=== PATIENT | female | born 1950 | race Caucasian/White ===

== ENCOUNTER 2017-05-04 11:27 | Day surgery (SDC) | payer MEDICARE ==
[2017-05-04] MEDS ORDERED: LIDOCAINE 2% MDV (20MG/ML) 20ML VIAL IV ONE (11:28)
[2017-05-04] MEDS ORDERED: PROPOFOL 10 MG/ML VIAL IV ONE (11:28)
--- NOTE | 2017-05-04 15:10 | Operative Note ---
DATE OF SURGERY: 05/04/2017 OPERATION: COLONOSCOPY to the cecum. INDICATION: Colorectal cancer screening. This is the patient's first colonoscopy. ANESTHESIA: Intravenous sedation was administered by the department of anesthesiology and included Diprivan titrated to effect. PROCEDURE: Following informed consent from this alert individual including a discussion of the risks and benefits of the procedure and an opportunity for the patient to ask questions, the patient was in the left lateral decubitus position. A digital rectal examination was performed. No abnormalities were detected. Following this, the Olympus [id number] video colonoscope was inserted into the rectum without resistance. The rectal mucosa had a normal appearance with normal folds and distensibility. The colonoscope was advanced up through the bowel to the level of the cecum without much difficulty, although there was a fair amount of retained liquid and some semi-solid stool noted. The majority of the liquid stool was suctioned and washed with fair visualization. The cecum itself was defined by noting the appendiceal orifice and cecal pouch. From the base of the cecum, the colonoscope was then withdrawn slowly back through the bowel, reexamining the mucosa upon withdrawal. Washing and suctioning upon withdrawal as well. As visualized, no mucosal changes were appreciated except for diverticulosis in the sigmoid colon. Retroflexion in the rectum failed to demonstrate any large abnormalities, although the preparation was compromised by some retained liquid and semi-solid stool in the distal rectum. The endoscope was then withdrawn after retroflexion was accomplished. The patient tolerated the procedure well and was returned to the recovery area in stable condition. IMPRESSION: 1. Diverticulosis. 2. Otherwise unremarkable colonoscopy to the cecum as visualized. 3. Colon preparation was fair. RECOMMENDATIONS: Because of the preparation, I did recommend that the patient have recheck colonoscopy in 3 years' time or sooner if problems arise. She will otherwise be following up with Dr. Leiva. As always, thank you for allowing me to participate in the care of your patient. CC: Jesus MCMULLEN
== END 2017-05-04 12:35 | disposition home or self-care (01) ==
LOC: HOP 11:27
PROVIDERS: ATTEND Internal Medicine Gastroenterology
DX: Z12.11 Encounter for screening for malignant neoplasm of colon (principal); K57.30 Diverticulosis of large intestine without perforation or abscess without bleeding
CPT/HCPCS: 00810; G0121

== ENCOUNTER 2018-11-10 10:51 | Emergency (ER) | payer MEDICARE, OTHER ==
--- NOTE | 2018-11-10 12:05 | Emergency Department Record ---
History of Present Illness - General Chief Complaint: Hypertension Stated Complaint: HIGH BLOOD PRESSURE Time Seen by Provider: 11/10/18 11:59 Source: Patient, RN notes reviewed Mode of Arrival: Ambulatory - History of Present Illness Initial Comments: high BP at home and she came in for evaluation and no chest pain she feels tired and no headache and EKG is nsr no acute changes. Onset/Timin -: Week(s) History of Same: No History of Trauma: No Improves With: Nothing Worsens With: Nothing Associated Symptoms: Other - Trang Coma Scale Eye Response: (4) Open spontaneously Motor Response: (6) Obeys commands - Related Data Previous Rx's Medication Instructions Recorded Amlodipine Besylate [Norvasc] 5 mg PO DAILY #30 tab 11/10/18 Allergies Allergy/AdvReac Type Severity Reaction Status Date / Time ciprofloxacin [From Cipro] Allergy RASH Verified 11/10/18 11:14 Latex, Natural Rubber Allergy RASH Verified 11/10/18 11:14 Travel Screening - Travel/Exposure Within Last 30 Days Have you traveled within the last 30 days?: No - Travel/Exposure Within Last Year Have you traveled outside the [place] in the last year?: No - Additonal Travel Details Have you been exposed to anyone with a communicable illness?: No - Travel Symptoms Symptom Screening: None Review of Systems Reviewed: No additional complaints except as noted below Constitutional: Reports: As per HPI. Denies: Chills, Fever, Malaise, Night sweats, Weakness, Weight change Eyes: Reports: As per HPI. Denies: Eye discharge, Eye pain, Photophobia, Vision change ENT: Reports: As per HPI. Denies: Congestion, Dental pain, Ear pain, Epistaxis, Hearing loss, Throat pain Respiratory: Reports: As per HPI. Denies: Cough, Dyspnea, Hemoptysis, Stridor, Wheezes Cardiovascular: Reports: As per HPI. Denies: Arrhythmia, Chest pain, Dyspnea on exertion, Edema, Murmurs, Orthopnea, Palpitations, Paroxysmal nocturnal dyspnea, Rheumatic Fever, Syncope Endocrine: Reports: As per HPI. Denies: Fatigue, Heat or cold intolerance, Polydipsia, Polyuria Gastrointestinal: Reports: As per HPI. Denies: Abdominal pain, Constipation, Diarrhea, Hematemesis, Hematochezia, Melena, Nausea, Vomiting Genitourinary: Reports: As per HPI. Denies: Abnormal menses, Discharge, Dyspare unia, Dysuria, Frequency, Hematuria, Incontinence, Retention, Urgency Musculoskeletal: Reports: As per HPI. Denies: Arthralgia, Back pain, Gout, Joint swelling, Myalgia, Neck pain Skin: Reports: As per HPI. Denies: Bruising, Change in color, Change in hair/nails, Lesions, Pruritus, Rash Neurological: Reports: As per HPI. Denies: Abnormal gait, Confusion, Headache, Numbness, Paresthesias, Seizure, Tingling, Tremors, Vertigo, Weakness Psychiatric: Reports: As per HPI. Denies: Anxiety, Auditory hallucinations, Depression, Homicidal thoughts, Suicidal thoughts, Visual hallucinations Hematological/Lymphatic: Reports: As per HPI. Denies: Anemia, Blood Clots, Easy bleeding, Easy bruising, Swollen glands Past Medical History - SOCIAL HISTORY Smoking Status: Never smoker Alcohol Use: None Drug Use: None - RESPIRATORY Hx Respiratory Disorders: Yes Hx Pneumonia: Yes - CARDIOVASCULAR Hx Cardio Disorders: No - NEURO Hx Neuro Disorders: Yes - GI Hx GI Disorders: No - Hx Genitourinary Disorders: Yes Hx UTI: Yes - ENDOCRINE Hx Endocrine Disorders: No - MUSCULOSKELETAL Hx Musculoskeletal Disorders: No - PSYCH Hx Psych Problems: No - HEMATOLOGY/ONCOLOGY Hx Hematology/Oncology Disorders: Yes Hx Cancer: Yes (cervical cancer) Family Medical History Any Significant Family History?: No Hx Cancer: Father Hx Diabetes: Mother Hx Heart Disease: Mother Physical Exam - General General Appearance: Alert, Oriented x3, Cooperative, No acute distress - Head Head exam: Normal inspection - Eye Eye exam: Normal appearance, PERRL Pupils: Normal accommodation - ENT ENT exam: Normal exam, Mucous membranes moist, Normal external ear exam, Normal orophraynx, TM's normal bilaterally Ear exam: Normal external inspection. negative: External canal tenderness Nasal Exam: Normal inspection. negative: Discharge, Sinus tenderness Mouth exam: Normal external inspection, Tongue normal Teeth exam: Normal inspection. negative: Dental caries Throat exam: Normal inspection. negative: Tonsillar erythema, Tonsillar exudate - Neck Neck exam: Normal inspection, Full ROM. negative: Tenderness - Respiratory Respiratory exam: Normal lung sounds bilaterally. negative: Respiratory distress - Cardiovascular Cardiovascular Exam: Regular rate, Normal rhythm, Normal heart sounds - GI/Abdominal GI/Abdominal exam: Soft, Normal bowel sounds. negative: Tenderness - Rectal Rectal exam: Deferred - exam: Deferred - Extremities Extremities exam: Normal inspection, Full ROM, Normal capillary refill. negative: Tenderness - Back Back exam: Reports: Normal inspection, Full ROM. Denies: Muscle spasm, Rash noted, Tenderness - Neurological Neurological exam: Alert, Normal gait, Oriented X3, Reflexes normal - Psychiatric Psychiatric exam: Normal affect, Normal mood - Skin Skin exam: Dry, Intact, Normal color, Warm Course Vital Signs 11/10/18 11/10/18 11:02 11:54 Temperature 97.6 F Pulse Rate 62 Pulse Rate [ 59 L Pulse Ox Probe] Respiratory 18 16 Rate Blood Pressure 164/107 Blood Pressure 139/98 [Left Arm] Pulse Ox 99 96 Disposition Clinical Impression: Hypertension Qualifiers: Hypertension type: essential hypertension Qualified Code(s): I10 - Essential (primary) hypertension Disposition: Home, Self-Care Condition: (1) Good Instructions: Hypertension (ED) Additional Instructions: follow up with Dr bustos in one week Prescriptions: Amlodipine Besylate [Norvasc] 5 mg PO DAILY #30 tab Time of Disposition: 12:04 Quality - Quality Measures Quality Measures: N/A - Blood Pressure Screening Does Patient Have Any of the Following: No Blood Pressure Classification: Hypertensive Reading Systolic Measurement: 164 Diastolic Measurement: 107 Screening for High Blood Pressure: < First Hypertensive BP, F/U Documented > [G8950] First Hypertensive Follow-up Interventions: Referral to alternative/primary care provider.
== END 2018-11-10 12:26 | disposition home or self-care (01) ==
LOC: MERGE 10:51 → ER 10:51
DX: I10 Essential (primary) hypertension (principal); R53.83 Other fatigue
CPT/HCPCS: 93005; 93010; 99284

== ENCOUNTER 2018-12-03 15:02 | Emergency (ER) | payer MEDICARE, OTHER ==
--- NOTE | 2018-12-03 21:21 | Emergency Department Record ---
History of Present Illness - General Chief Complaint: Ankle/Foot Injury Stated Complaint: INJURY TO RT FOOT Time Seen by Provider: 12/03/18 15:19 Source: Patient Mode of Arrival: Ambulatory Limitations: No limitations - History of Present Illness Initial Comments: Pt with injury to right foot last night after hitting on a dresser. Able to walk with some discomfort. No ankle or knee pains. Onset/Timin -: Hour(s) Type of Injury: Blunt Place: Home Severity: Moderate Severity scale (1-10): 5 Improves With: Nothing Worsens With: Weight bearing Context: Direct blow Associated Symptoms: Able to partially bear weight - Related Data Home Medications Medication Instructions Recorded Confirmed Last Taken Telmisartan 0 mg PO QPM 12/03/18 12/03/18 12/02/18 Previous Rx's Medication Instructions Recorded Amlodipine Besylate [Norvasc] 5 mg PO DAILY #30 tab 11/10/18 Ibuprofen [Motrin 600Mg] 600 mg PO Q6H 7 Days #40 tablet 12/03/18 Allergies Allergy/AdvReac Type Severity Reaction Status Date / Time ciprofloxacin [From Cipro] Allergy RASH Verified 12/03/18 15:06 Latex, Natural Rubber Allergy RASH Verified 12/03/18 15:06 Travel Screening - Travel/Exposure Within Last 30 Days Have you traveled within the last 30 days?: No - Travel/Exposure Within Last Year Have you traveled outside the [place] in the last year?: No - Additonal Travel Details Have you been exposed to anyone with a communicable illness?: No - Travel Symptoms Symptom Screening: None Review of Systems Constitutional: Denies: Chills, Fever Eyes: Denies: Vision change ENT: Denies: Congestion Respiratory: Denies: Cough Cardiovascular: Denies: Chest pain Endocrine: Denies: Fatigue Gastrointestinal: Denies: Abdominal pain Musculoskeletal: Reports: As per HPI Skin: Denies: Rash Neurological: Denies: Headache, Weakness Psychiatric: Denies: Anxiety Past Medical History - SOCIAL HISTORY Smoking Status: Never smoker Alcohol Use: None Drug Use: None - RESPIRATORY Hx Respiratory Disorders: No Hx Pneumonia: Yes - CARDIOVASCULAR Hx Cardio Disorders: No - NEURO Hx Neuro Disorders: No - GI Hx GI Disorders: No - Hx Genitourinary Disorders: No Hx UTI: Yes - ENDOCRINE Hx Endocrine Disorders: No - MUSCULOSKELETAL Hx Musculoskeletal Disorders: No - PSYCH Hx Psych Problems: Yes Hx Anxiety: Yes Hx Depression: Yes - HEMATOLOGY/ONCOLOGY Hx Hematology/Oncology Disorders: Yes Hx Cancer: Yes (cervical cancer) Family Medical History Any Significant Family History?: Yes Hx Cancer: Father Hx Diabetes: Mother Hx Heart Disease: Mother Physical Exam - General General Appearance: Alert, Oriented x3, Cooperative, No acute distress - Head Head exam: Atraumatic, Normocephalic - Eye Eye exam: Normal appearance, PERRL - ENT ENT exam: Mucous membranes moist Ear exam: Normal external inspection Nasal Exam: Normal inspection - Neck Neck exam: Normal inspection - Respiratory Respiratory exam: Normal lung sounds bilaterally. negative: Accessory muscle use, Rhonchi, Wheezes - Cardiovascular Cardiovascular Exam: Regular rate, Normal rhythm, Normal heart sounds - Extremities Extremities exam: Full ROM, Tenderness (right dorsal lateral foot. No ankle pain. No skin break. ). negative: Joint swelling Course Vital Signs 12/03/18 15:09 Temperature 98.5 F Pulse Rate 78 Respiratory 18 Rate Blood Pressure 108/75 Pulse Ox 95 - Reevaluation(s) Reevaluation #1: 12/03/18 15:50 Xray with fracture distal 5th MT with deformity. Placed in post op shoe. Pod referral. Disposition Disposition: Discharge Clinical Impression: Fracture of metatarsal of right foot, closed Qualifiers: Encounter type: initial encounter Metatarsal bone: fifth Physeal involvement: unspecified Qualified Code(s): S92.351A - Displaced fracture of fifth metatarsal bone, right foot, initial encounter for closed fracture Disposition: Home, Self-Care Condition: (1) Good Instructions: Foot Fracture in Adults (ED) Additional Instructions: Ice and elevate. Wear your post op shoe when up. See Podiatry as instructed. See your primary doc as scheduled in 3 days for referral to Podiatry. Return to the ED as needed. Prescriptions: Ibuprofen [Motrin 600Mg] 600 mg PO Q6H 7 Days #40 tablet Forms: Patient Portal Access Time of Disposition: 16:00 Quality - Quality Measures Quality Measures: N/A - Blood Pressure Screening Does Patient Have Any of the Following: No, Active Dx of HTN Blood Pressure Classification: Normal BP Reading Systolic Measurement: 108 Diastolic Measurement: 75 Screening for High Blood Pressure: Patient Exclusion, Hx of HTN [G9744]
--- NOTE | 2018-12-06 20:24 | RADIOLOGY REPORT ---
EXAM: FOOT, RIGHT 3 VIEWS HISTORY: INJURY AND PAIN INVOLVING THE FIFTH TOE. TECHNIQUE: Three views of the right foot. COMPARISON: None. FINDINGS: Acute, obliquely-oriented fracture of the fifth metatarsal neck. Suggestion of approximately 4 mm dorsal displacement. Mild medial angulation. No definite additional acute fractures. No evidence of dislocation. Limited visualization of the fifth digit middle and distal phalanges due to anatomic overlap. Forefoot soft tissue swelling. First metatarsophalangeal joint arthrosis with hallux valgus. Plantar calcaneal enthesophyte/spur. IMPRESSION: ACUTE MILDLY DISPLACED AND ANGULATED FRACTURE OF THE FIFTH METATARSAL NECK. JOB NUMBER: [id number] [facility]
== END 2018-12-03 16:14 | disposition home or self-care (01) ==
LOC: ER 15:02
DX: S92.351A Displaced fracture of fifth metatarsal bone, right foot, initial encounter for closed fracture (principal); W22.03XA Walked into furniture, initial encounter; Y92.003 Bedroom of unspecified non-institutional (private) residence as the place of occurrence of the external cause
CPT/HCPCS: 99283

== ENCOUNTER 2019-02-26 13:52 | Observation (INO) | payer MEDICARE, OTHER ==
[2019-02-26] MEDS ORDERED: ASPIRIN 81 MG CHEWABLE TABLET PO ONE (14:37)
--- NOTE | 2019-02-26 14:39 | Emergency Department Record ---
History of Present Illness - General Chief Complaint: Chest Pain Stated Complaint: CHEST PAIN/HAS HAD OPEN HEART SURGERY Time Seen by Provider: 02/26/19 14:08 Source: Patient Mode of Arrival: Ambulatory Limitations: No limitations - History of Present Illness Initial Comments: pt came in c/o cp fwaxing and waning for 3 days. it goes from her back and wraps around her chest. it feels squeezing. she has not had this before she is worried about her heart and cancer. she has no nausea or sob. she has a hx of cervical cancer and chemo. she also has a hx of open heart surgery for a hole in her heart many years ago Complaint: Chest pain Onset/Timin -: Days(s) Pain Location: Left chest, Right chest, Other Pain Radiation: Back Severity: Moderate Severity scale (1-10): 7 Quality: Tightness Consistency: Constant, Other (but waxes and wanes) Worsens With: Nothing Treatments Prior to Arrival: None - Related Data Previous Rx's Medication Instructions Recorded Amlodipine Besylate [Norvasc] 5 mg PO DAILY #30 tab 11/10/18 Ibuprofen [Motrin 600Mg] 600 mg PO Q6H 7 Days #40 tablet 12/03/18 Allergies Allergy/AdvReac Type Severity Reaction Status Date / Time ciprofloxacin [From Cipro] Allergy RASH Verified 02/26/19 14:04 Latex, Natural Rubber Allergy RASH Verified 02/26/19 14:04 Review of Systems Reviewed: No additional complaints except as noted below Constitutional: Reports: As per HPI. Denies: Chills, Fever, Malaise, Night sweats, Weakness, Weight change Eyes: Reports: As per HPI. Denies: Eye discharge, Eye pain, Photophobia, Vision change ENT: Reports: As per HPI. Denies: Congestion, Dental pain, Ear pain, Epistaxis, Hearing loss, Throat pain Respiratory: Reports: As per HPI. Denies: Cough, Dyspnea, Hemoptysis, Stridor, Wheezes Cardiovascular: Reports: As per HPI, Chest pain. Denies: Arrhythmia, Dyspnea on exertion, Edema, Murmurs, Orthopnea, Palpitations, Paroxysmal nocturnal dyspnea, Rheumatic Fever, Syncope Endocrine: Reports: As per HPI. Denies: Fatigue, Heat or cold intolerance, Polydipsia, Polyuria Gastrointestinal: Reports: As per HPI. Denies: Abdominal pain, Constipation, Diarrhea, Hematemesis, Hematochezia, Melena, Nausea, Vomiting Genitourinary: Reports: As per HPI. Denies: Abnormal menses, Discharge, Dyspareunia, Dysuria, Frequency, Hematuria, Incontinence, Retention, Urgency Musculoskeletal: Reports: As per HPI. Denies: Arthralgia, Back pain, Gout, Joint swelling, Myalgia, Neck pain Skin: Reports: As per HPI. Denies: Bruising, Change in color, Change in hair/nails, Lesions, Pruritus, Rash Neurological: Reports: As per HPI. Denies: Abnormal gait, Confusion, Headache, Numbness, Paresthesias, Seizure, Tingling, Tremors, Vertigo, Weakness Psychiatric: Reports: As per HPI. Denies: Anxiety, Auditory hallucinations, Depression, Homicidal thoughts, Suicidal thoughts, Visual hallucinations Hematological/Lymphatic: Reports: As per HPI. Denies: Anemia, Blood Clots, Easy bleeding, Easy bruising, Swollen glands Past Medical History - SOCIAL HISTORY Smoking Status: Never smoker Drug Use: None - RESPIRATORY Hx Respiratory Disorders: No Hx Pneumonia: Yes - CARDIOVASCULAR Hx Cardio Disorders: No - NEURO Hx Neuro Disorders: No - GI Hx GI Disorders: No - Hx Genitourinary Disorders: No Hx UTI: Yes - ENDOCRINE Hx Endocrine Disorders: No - MUSCULOSKELETAL Hx Musculoskeletal Disorders: No - PSYCH Hx Psych Problems: Yes Hx Anxiety: Yes Hx Depression: Yes - HEMATOLOGY/ONCOLOGY Hx Hematology/Oncology Disorders: Yes Hx Cancer: Yes (cervical cancer) Family Medical History Hx Cancer: Father Hx Diabetes: Mother Hx Heart Disease: Mother Physical Exam - General General Appearance: Alert, Oriented x3, Cooperative, Mild distress - Head Head exam: Normal inspection - Eye Eye exam: Normal appearance, PERRL, EOMI Pupils: Normal accommodation - ENT ENT exam: Normal exam, Mucous membranes moist, Normal external ear exam, Normal orophraynx Ear exam: Normal external inspection. negative: External canal tenderness Nasal Exam: Normal inspection. negative: Discharge, Sinus tenderness Mouth exam: Normal external inspection, Tongue normal Teeth exam: Normal inspection. negative: Dental caries Throat exam: Normal inspection. negative: Tonsillar erythema, Tonsillar exudate - Neck Neck exam: Normal inspection, Full ROM. negative: Tenderness - Respiratory Respiratory exam: Normal lung sounds bilaterally. negative: Respiratory distress - Cardiovascular Cardiovascular Exam: Regular rate, Normal rhythm, Normal heart sounds - GI/Abdominal GI/Abdominal exam: Soft, Normal bowel sounds. negative: Tenderness - Rectal Rectal exam: Deferred - exam: Deferred - Extremities Extremities exam: Normal inspection, Full ROM, Normal capillary refill. negative: Tenderness - Back Back exam: Reports: Normal inspection, Full ROM. Denies: Muscle spasm, Rash noted, Tenderness - Neurological Neurological exam: Alert, CN II-XII intact, Normal gait, Oriented X3 - Psychiatric Psychiatric exam: Normal affect, Normal mood - Skin Skin exam: Dry, Intact, Normal color, Warm Course - Reevaluation(s) Reevaluation #1: 02/26/19 18:33 ntg made pain better. ct of chest was neg for pe but did show a saccular aortic aneurysm. Medical Decision Making - Lab Data Result diagrams: 02/26/19 14:00 02/26/19 14:00 Disposition Disposition: Admit Clinical Impression: Chest pain Qualifiers: Chest pain type: other chest pain Qualified Code(s): R07.89 - Other chest pain; R07.8 - Other chest pain Disposition: Still a Patient at [facility] Decision to Admit: Admit from ER Decision to Admit Date: 02/26/19 Decision to Admit Time: 18:35 Forms: Patient Portal Access Quality - Quality Measures Quality Measures: N/A - Blood Pressure Screening Does Patient Have Any of the Following: No Blood Pressure Classification: Pre-Hypertensive BP Reading Systolic Measurement: 133 Diastolic Measurement: 84 Screening for High Blood Pressure: < Pre-Hypertensive BP, F/U Documented > [G8950] Pre-Hypertensive Follow-up Interventions: Follow-up with rescreen every year.
[2019-02-26] MEDS: NITROGLYCERIN 0.4MG SL TABLET #25 BTL SL PRN ×2 (15:06→16:31)
[2019-02-26 15:07] LABS: ABSOLUTE NEUTROPHIL COUNT 2.87; BASO % 0.2 % (0-6); EOS % 2.6 % (0-6); GRAN % 68.5 % (47-80); HEMATOCRIT 40.5 % (35.0-47.0); HEMOGLOBIN 13.3 gm/dl (11.6-16.0); LYMPH % 17.7 % (16-45); MEAN CELL VOLUME 96.4 fl (81-97); MEAN CORPUSCULAR HEMOGLOBIN 31.7 pg (27-33); MEAN CORPUSCULAR HGB CONC 32.8 g/dl (32-36); PLATELET COUNT 200 K/uL (130-400); RED CELL DISTRIBUTION WIDTH 13.7 % (11.5-14.5); WHITE BLOOD COUNT W/O DIFF 4.2 K/uL (4.2-12.2)
[2019-02-26 15:16] LABS: BLOOD UREA NITROGEN 13 mg/dL (8-23); CREATININE 0.8 mg/dL (0.5-0.9); EST GLOMERULAR FILTRATION RATE > 60 mL/min
[2019-02-26 15:17] LABS: TOTAL PROTEIN 7.5 g/dL (6.6-8.7)
[2019-02-26 15:19] LABS: GLUCOSE,RANDOM 90 mg/dL (74-109)
[2019-02-26 15:21] LABS: ALT/SGPT 20 U/L (<33); AST/SGOT 20 U/L (10.0-35.0)
[2019-02-26 15:22] LABS: ALB/GLOB RATIO 1.6 (1.1-1.8); ALBUMIN 4.6 g/dL (4.0-5.0); ALKALINE PHOSPHATASE 99 U/L (35-104); CREATINE PHOSPHOKINASE 153 U/L (26-192)
[2019-02-26] MEDS ORDERED: NITROGLYCERIN 0.4MG SL TABLET #25 BTL SL PRN (20:07)
[2019-02-26] MEDS ORDERED: TEMAZEPAM 15 MG CAPSULE PO PRN (20:07)
[2019-02-26] MEDS ORDERED: ACETAMINOPHEN 500 MG TABLET PO PRN (20:07)
[2019-02-26] MEDS: IBUPROFEN 600 MG TABLET PO SCH (20:46)
[2019-02-26 22:25] LABS: CKMB 1.6 ng/mL (<3.77)
--- NOTE | 2019-02-26 23:32 | History & Physical ---
History of Present Illness - Date of Service Date of Service for History & Physical: 02/27/19 - History of Present Illness Admitting Diagnosis: chest pain History of Present Illness: Mrs. Packer is a 69 y/o female with complaint of chest and back pain ye sterday. The patient says that the pain was sharp approximatelt 8/10 in severity and radiated to her back. She says that she thought it was a muscle problem but that it wouldn't go away so she decided to come in. She denies, shortness of breath, palpitations, or radiation to her arms or neck. She notes a history of congenital cardiac malformation requiring repair in 1984 but she has not had any problems since. She denies smoking, Etoh or family history of coronary artery disease. On arrival to [facility] ED the patient was given Nitroglycerin and Aspirin and symptoms resolved. D- dimer was elevated prompting a CTA which wsa negative for PE but showed an incidental finding of a saccular aortic aneurysm measuring up to 2.5cm in diameter without evidence of rupture and also ground glass opacities in both lungs. The patient is admitted for observation and serial cardiac enzymes. PCP: Dr. Christos Leiva Travel Screening - Travel/Exposure Within Last 30 Days Have you traveled within the last 30 days?: Yes Location Detail:: [place] - Travel/Exposure Within Last Year Have you traveled outside the [place] in the last year?: No - Additonal Travel Details Have you been exposed to anyone with a communicable illness?: No - Travel Symptoms Symptom Screening: None Review of Systems Constitutional: Reports: As per HPI. Denies: Chills, Fever, Malaise, Night sweats, Weakness, Weight change Eyes: Reports: As per HPI. Denies: Eye discharge, Eye pain, Photophobia, Vision change ENT: Reports: As per HPI. Denies: Congestion, Dental pain, Ear pain, Epistaxis, Hearing loss, Throat pain Respiratory: Reports: As per HPI. Denies: Cough, Dyspnea, Hemoptysis, Stridor, Wheezes Cardiovascular: Reports: As per HPI, Chest pain. Denies: Arrhythmia, Dyspnea on exertion, Edema, Murmurs, Orthopnea, Palpitations, Paroxysmal nocturnal dyspnea, Rheumatic Fever, Syncope Endocrine: Reports: As per HPI. Denies: Fatigue, Heat or cold intolerance, Polydipsia, Polyuria Gastrointestinal: Reports: As per HPI. Denies: Abdominal pain, Constipation, Diarrhea, Hematemesis, Hematochezia, Melena, Nausea, Vomiting Genitourinary: Reports: As per HPI. Denies: Abnormal menses, Discharge, Dyspare unia, Dysuria, Frequency, Hematuria, Incontinence, Retention, Urgency Musculoskeletal: Reports: As per HPI. Denies: Arthralgia, Back pain, Gout, Joint swelling, Myalgia, Neck pain Skin: Reports: As per HPI. Denies: Bruising, Change in color, Change in hair/nails, Lesions, Pruritus, Rash Neurological: Reports: As per HPI. Denies: Abnormal gait, Confusion, Headache, Numbness, Paresthesias, Seizure, Tingling, Tremors, Vertigo, Weakness Psychiatric: Reports: As per HPI. Denies: Anxiety, Auditory hallucinations, Depression, Homicidal thoughts, Suicidal thoughts, Visual hallucinations Hematological/Lymphatic: Reports: As per HPI. 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" - NEURO Hx Neuro Disorders: Yes - GI Hx GI Disorders: No - Hx Genitourinary Disorders: Yes Hx UTI: Yes - ENDOCRINE Hx Endocrine Disorders: No Hx Diabetes: No Hx Thyroid Disease: No - MUSCULOSKELETAL Hx Musculoskeletal Disorders: No Comment:: recent fracture right foot due to a mechnaical fall - PSYCH Hx Psych Problems: Yes Hx Anxiety: Yes Hx Depression: Yes - HEMATOLOGY/ONCOLOGY Hx Hematology/Oncology Disorders: Yes Hx Cancer: Yes (hx cervical cancer) Family Medical History Any Significant Family History?: Yes Hx Cancer: Father Hx Diabetes: Mother Hx Heart Disease: Mother H&P Meds/Allergies - Allergies Allergies: Allergies Allergy/AdvReac Type Severity Reaction Status Date / Time ciprofloxacin [From Cipro] Allergy RASH Verified 02/26/19 14:04 Latex, Natural Rubber Allergy RASH Verified 02/26/19 14:04 - Home Medications Previous Rx's Medication Instructions Recorded Amlodipine Besylate [Norvasc] 5 mg PO DAILY #30 tab 11/10/18 Ibuprofen [Motrin 600Mg] 600 mg PO Q6H 7 Days #40 tablet 12/03/18 - Active Medications Active Medications: Current Medications Acetaminophen (Tylenol 500mg Tab) 1,000 mg PO Q6H PRN PRN Reason: PAIN - MILD(1-4)/FEVER Aspirin (Ecotrin (Ec)) 325 mg PO DAILY [facility] Ibuprofen (Motrin 600mg) 600 mg PO Q6H [facility] Last Admin: 02/26/19 20:46 Dose: 600 mg Documented by: Nitroglycerin (Nitrostat 0.4mg) 0.4 mg SL Q5MIN PRN PRN Reason: CHEST PAIN Patient Own: Telmisartan 80mg Tablet 1 each MC QPM [facility] Patient Own Med: Amlodepine 5mg Tab.( Norvasc) 1 each MC DAILY [facility] Temazepam (Restoril) 15 mg PO QHS PRN PRN Reason: INSOMNIA Physical Exam - Vital Signs Vital Signs: Vital Signs - Last 24 Hrs Temp Pulse Pulse Resp BP BP Pulse Ox 02/26/19 22:07 97.5 F L 64 16 127/80 95 02/26/19 19:55 97.7 F 82 16 148/93 97 02/26/19 19:54 63 20 129/89 97 02/26/19 16:37 76 16 129/90 98 02/26/19 15:50 64 16 119/73 98 02/26/19 14:46 61 24 133/79 97 02/26/19 14:37 84 16 136/82 98 02/26/19 14:06 97.8 F 69 20 133/84 96 - General General Appearance: Alert, Oriented x3, Cooperative, Mild distress Limitations: No limitations - Head Head exam: Normal inspection - Eye Eye exam: Normal appearance, PERRL, EOMI Pupils: Normal accommodation - ENT ENT exam: Normal exam, Mucous membranes moist, Normal external ear exam, Normal orophraynx Ear exam: Normal external inspection. negative: External canal tenderness Nasal Exam: Normal inspection. negative: Discharge, Sinus tenderness Mouth exam: Normal external inspection, Tongue normal Teeth exam: Normal inspection. negative: Dental caries Throat exam: Normal inspection. negative: Tonsillar erythema, Tonsillar exudate - Neck Neck exam: Normal inspection, Full ROM. negative: Tenderness - Respiratory Respiratory exam: Normal lung sounds bilaterally. negative: Respiratory distress - Cardiovascular Cardiovascular Exam: Regular rate, Normal rhythm, Normal heart sounds Peripheral Pulses: 3+: Radial (R), Radial (L), Dorsalis Pedis (R), Dorsalis Pedis (L) - GI/Abdominal GI/Abdominal exam: Soft, Normal bowel sounds. negative: Tenderness - Rectal Rectal exam: Deferred - exam: Deferred - Extremities Extremities exam: Normal inspection, Full ROM, Normal capillary refill. negative: Tenderness - Back Back exam: Reports: Normal inspection, Full ROM. Denies: Muscle spasm, Rash noted, Tenderness - Neurological Neurological exam: Alert, CN II-XII intact, Normal gait, Oriented X3 - Psychiatric Psychiatric exam: Normal affect, Normal mood - Skin Skin exam: Dry, Intact, Normal color, Warm Results - Labs Result Diagrams: 02/26/19 14:00 02/26/19 14:00 Labs Last 24 Hours: Laboratory Results - last 24 hr 02/26/19 02/26/19 02/26/19 14:00 14:00 14:00 WBC 4.2 RBC 4.20 Hgb 13.3 Hct 40.5 MCV 96.4 MCH 31.7 MCHC 32.8 RDW 13.7 Plt Count 200 MPV 10.0 Gran % 68.5 Lymphocytes % 17.7 Monocytes % 11.0 H Eosinophils % 2.6 Basophils % 0.2 Absolute Neutrophils 2.87 D-Dimer 0.84 H Sodium 142 Potassium 3.5 Chloride 103 Carbon Dioxide 26.0 Anion Gap 13.0 BUN 13 Creatinine 0.8 Estimated GFR > 60 Random Glucose 90 Calcium 9.5 Total Bilirubin 0.30 AST 20 ALT 20 Alkaline Phosphatase 99 Creatine Kinase 153 CK-MB (CK-2) 2.0 Troponin T < 0.010 Total Protein 7.5 Albumin 4.6 Globulin 2.9 Albumin/Globulin Ratio 1.6 Triglycerides Cholesterol LDL Cholesterol Measurd VLDL Cholesterol HDL Cholesterol 02/26/19 02/26/19 22:00 22:00 WBC RBC Hgb Hct MCV MCH MCHC RDW Plt Count MPV Gran % Lymphocytes % Monocytes % Eosinophils % Basophils % Absolute Neutrophils D-Dimer Sodium Potassium Chloride Carbon Dioxide Anion Gap BUN Creatinine Estimated GFR Random Glucose Calcium Total Bilirubin AST ALT Alkaline Phosphatase Creatine Kinase CK-MB (CK-2) 1.6 Troponin T < 0.010 Total Protein Albumin Globulin Albumin/Globulin Ratio Triglycerides 146 Cholesterol 201 H LDL Cholesterol Measurd 142.0 H VLDL Cholesterol 29 HDL Cholesterol 50 VTE H&P Assessment - Risk for VTE Risk for VTE: Yes Risk Level: Very Low Risk Assessment Date: 02/27/19 Risk Assessment Time: 10:49 VTE Orders Placed or Will Be Placed: No VTE Reason for No Prophylaxis: Not Indicated Plan - Detailed Diagnosis and Plan (1) Chest pain Current Visit: Yes Status: Acute Qualifiers: Chest pain type: other chest pain Qualified Code(s): R07.89 - Other chest pain; R07.8 - Other chest pain Base Code: R07.9 - CHEST PAIN, UNSPECIFIED Comment: 02/26/19: - ECG: NSR, no acute ST-T wave changes. - CTA negative for PE, 2.5cm ascedning aortic aneurysm incidentally noted. - Nitrostat 0.4 , q5mins prn and ASA 325mg once. - Troponins negative x 3 - No acute changes on process consultant and patient asymptomatic. (2) HTN (hypertension) Current Visit: Yes Status: Acute Base Code: I10 - ESSENTIAL (PRIMARY) HYPERTENSION Comment: 02/26/19: - Resume home doses of Telmasratan and Amlodipine. (3) Full code status Current Visit: Yes Status: Acute Base Code: Z78.9 - OTHER SPECIFIED HEALTH STATUS Comment: 02/26/19: - Patient is full code.
[2019-02-27] MEDS: IBUPROFEN 600 MG TABLET PO SCH ×2 (02:42→10:28)
[2019-02-27 06:56] LABS: CKMB 1.2 ng/mL (<3.77)
[2019-02-27] MEDS ORDERED: LOSARTAN POTASSIUM 100 MG TABLET PO SCH (10:00)
[2019-02-27] MEDS ORDERED: ASPIRIN 325 MG TAB ENTERIC-COATED PO SCH (10:00)
[2019-02-27] MEDS ORDERED: AMLODIPINE 5 MG MC SCH (10:00)
[2019-02-27] MEDS ORDERED: AMLODIPINE BESYLATE 5MG TAB PO SCH (10:00)
--- NOTE | 2019-02-27 11:00 | Discharge Summary ---
Providers Discharge Summary Date: 02/27/19 Date of admission: 02/26/19 19:56 Attending physician: LIZ DICKEY Primary care physician: CHRISTOS LEIVA D.O. Physical Exam - Vital Signs Vital Signs: Vital Signs - Last 24 Hrs Temp Pulse Pulse Resp BP BP Pulse Ox 02/27/19 08:38 98.9 F 86 16 121/73 94 L 02/27/19 06:00 98.3 F 60 16 116/69 94 L 02/27/19 01:43 97.9 F 76 16 128/86 94 L 02/26/19 22:07 97.5 F L 64 16 127/80 95 02/26/19 19:55 97.7 F 82 16 148/93 97 02/26/19 19:54 63 20 129/89 97 02/26/19 16:37 76 16 129/90 98 02/26/19 15:50 64 16 119/73 98 02/26/19 14:46 61 24 133/79 97 02/26/19 14:37 84 16 136/82 98 02/26/19 14:06 97.8 F 69 20 133/84 96 - General General Appearance: Alert, Oriented x3, Cooperative, Mild distress Limitations: No limitations - Head Head exam: Normal inspection - Eye Eye exam: Normal appearance, PERRL, EOMI Pupils: Normal accommodation - ENT ENT exam: Normal exam, Mucous membranes moist, Normal external ear exam, Normal orophraynx Ear exam: Normal external inspection. negative: External canal tenderness Nasal Exam: Normal inspection. negative: Discharge, Sinus tenderness Mouth exam: Normal external inspection, Tongue normal Teeth exam: Normal inspection. negative: Dental caries Throat exam: Normal inspection. negative: Tonsillar erythema, Tonsillar exudate - Neck Neck exam: Normal inspection, Full ROM. negative: Tenderness - Respiratory Respiratory exam: Normal lung sounds bilaterally. negative: Respiratory distress - Cardiovascular Cardiovascular Exam: Regular rate, Normal rhythm, Normal heart sounds Peripheral Pulses: 3+: Radial (R), Radial (L), Dorsalis Pedis (R), Dorsalis Pedis (L) - GI/Abdominal GI/Abdominal exam: Soft, Normal bowel sounds. negative: Tenderness - Rectal Rectal exam: Deferred - exam: Deferred - Extremities Extremities exam: Normal inspection, Full ROM, Normal capillary refill. negative: Tenderness - Back Back exam: Reports: Normal inspection, Full ROM. Denies: Muscle spasm, Rash noted, Tenderness - Neurological Neurological exam: Alert, CN II-XII intact, Normal gait, Oriented X3 - Psychiatric Psychiatric exam: Normal affect, Normal mood - Skin Skin exam: Dry, Intact, Normal color, Warm Hospitalization - Hospitalization Admission Diagnosis: chest pain - Problem List/Discharge Diagnosis (1) Chest pain Current Visit: Yes Status: Acute Discharge Diagnosis: Chest pain type: other chest pain Qualified Code(s): R07.89 - Other chest pain; R07.8 - Other chest pain Base Code: R07.9 - CHEST PAIN, UNSPECIFIED Comment: 02/27/19: - ECG: NSR, no acute ST-T wave changes. - CTA negative for PE, 2.5cm ascedning aortic aneurysm incidentally noted. - Nitrostat 0.4 , q5mins prn and ASA 325mg once. - Troponins negative x 3 - No acute changes on media monitor and patient asymptomatic. - Follow up with PCP in 1 week. (2) HTN (hypertension) Current Visit: Yes Status: Acute Base Code: I10 - ESSENTIAL (PRIMARY) HYPERTENSION Comment: 02/27/19: - Resume home doses of Telmasratan and Amlodipine. (3) Full code status Current Visit: Yes Status: Acute Base Code: Z78.9 - OTHER SPECIFIED HEALTH STATUS Comment: 02/27/19: - Patient is full code. - Hospitalization Course Hospital Course: Mrs. Packer is a 69 y/o female with complaint of chest and back pain yesterday. The patient says that the pain was sharp approximatelt 8/10 in severity and radiated to her back. She says that she thought it was a muscle problem but that it wouldn't go away so she decided to come in. She denies, shortness of breath, palpitations, or radiation to her arms or neck. She notes a history of congenital cardiac malformation requiring repair in 1984 but she has not had any problems since. She denies smoking, Etoh or family history of coronary artery disease. On arrival to [facility] ED the patient was given Nitroglycerin and Aspirin and symptoms resolved. D- dimer was elevated prompting a CTA which wsa negative for PE but showed an incidental finding of a saccular aortic aneurysm measuring up to 2.5cm in diameter without evidence of rupture and also ground glass opacities in both lungs. The patient is admitted for observation and serial cardiac enzymes. Evaluation of patient this morning not suggestive of ACS. The patient's symptoms have resolved and labs and monitor are not suggestive of ACS. Follow up with PCP in 1 week recommended. PCP: Dr. Christos Leiva Procedures: Imaging and X-Rays 02/26/19 15:43 CHEST CTA w contrast [CTA] Stat Cardiology Procedures 02/26/19 14:37 Sketch Maker NOW EKG NOW 02/26/19 20:07 EKG QDX2@0600 Abnormal Labs: Abnormal Lab Results 02/26/19 02/26/19 02/26/19 Range/Units 14:00 14:00 22:00 Monocytes % 11.0 H (0-9) % D-Dimer 0.84 H (0-0.59) mg/L FEU Cholesterol 201 H (<200) mg/dL LDL Cholesterol Measurd 142.0 H (0-100) mg/dL Discharge Medications - Discharge Medications Home Medications: Ambulatory Orders Amlodipine Besylate [Norvasc] 5 mg PO DAILY #30 tab 11/10/18 [Last Taken 02/26/19] Ibuprofen [Motrin 600Mg] 600 mg PO Q6H 7 Days #40 tablet 12/03/18 [Last Taken Unknown] Telmisartan 0 mg PO QPM 12/03/18 [Last Taken 02/26/19] Discharge Plan - Discharge Instructions Activity at Discharge: Resume Usual Activities As Tolerated Diet at Discharge: Regular Diet, Low Salt Diet Additional Instructions: Resume home blood pressure medications as prescribed. Make and appt to see Dr. Leiva within 1 week of discharge. If you have similar complaint please do not hesitate to return to the ED. Quality Measures - Quality Measures Quality Measures: Advance Directives, Documentation of Current Medications in Medical Record, Elder Maltreatment Screen and Follow-Up Plan, Screening for High Blood Pressure and F/U Documented - Current Medications Quality Measure: Measure #130: Documentation of Current Medications Documentation of Current Medications: <Current Medications Documented/Reviewed> [G8427] - Blood Pressure Screening Quality Measure: Screening for High Blood Pressure and Follow-Up Documented Does Patient Have Any of the Following: Active Dx of HTN Blood Pressure Classification: Pre-Hypertensive BP Reading Systolic Measurement: 133 Diastolic Measurement: 84 Screening for High Blood Pressure: Patient Exclusion, Hx of HTN [G9744] - Advance Directives Quality Measure: Measure #47: Care Plan Advance Directives Established: No Advance Directives Information Provided To Patient: No Advance Directives on File: No Living Will: No Power of Slot Supervisor: No Advance Care Planning: <Care Plan/Decision Maker Documented; Discussed & Documented> [1123F] - Elder Abuse Suspicion Index Screening: Elder Abuse Suspicion Index Screening Rely on people for bathing, dressing, shopping, banking, etc: No Prevented from getting food, clothes, medication, etc: No Made to feel shamed or threatened by someone: No Forced to sign papers or use money against will: No Feel afraid, touched in ways not wanted or hurt physically: No Poor eye contact, withdrawn, malnourished, cuts or bruises: No Screening Result: Negative result EASI Reference Information: Marta RAZA, Lorenzo C, Amber D, Saad Newberry.Development and validation of a tool to assist physicians identification of elder abuse: The Elder Abuse Suspicion Index (EASI ). Journal of Elder Abuse and Neglect, 2008; 20 (3): 276-300. - Elder Maltreatment Screen Quality Measures: Elder Maltreatment Screen and Follow-Up Plan Elder Maltreatment Screen: <Negative, No Follow-Up Plan Required> [G8734]
[2019-02-27] MEDS ORDERED: DIPHENHYDRAMINE HCL 25 MG CAPSULE PO ONE (13:10)
[2019-02-27] MEDS ORDERED: TELMISARTAN 80 MG MC SCH (17:00)
--- NOTE | 2019-03-01 06:43 | CT ANGIOGRAM REPORT ---
EXAM: CT ANGIOGRAM OF THE CHEST WITH POST PROCESSING HISTORY: STABBING PAIN WITHIN THE LEFT SCAPULA FOR THE PAST THREE DAYS. ELEVATED D-DIMER. TECHNIQUE: Standard CT angiography of the chest was performed with post processing following the bolus administration of 70 ml of Omnipaque 350. Additional coronal and sagittal maximum intensity projection reformatted images were performed on an independent workstation under concurrent supervision. FINDINGS: The heart is mildly enlarged. The patient is status post median sternotomy. The pulmonary artery appears mildly enlarged suggesting underlying pulmonary arterial hypertension. There is no pulmonary embolus. There is focal saccular aneurysm arising from the anterior wall of the ascending aorta at the level of the right main pulmonary artery. The aneurysm measures 2.5 x 1.5 x 2 cm. There is no evidence for rupture. There is no aortic dissection. There is no mediastinal or hilar lymphadenopathy. There are patchy ground glass infiltrates within both lungs. Minor dependent atelectasis is also present bilaterally. There is no pneumothorax or effusion. The chest wall and axillary regions appear normal. Degenerative changes are present within the spine. There are scattered cysts within the liver. The upper abdomen is otherwise unremarkable. IMPRESSION: 1. NO EVIDENCE FOR PULMONARY EMBOLISM OR AORTIC DISSECTION. 2. FOCAL SACCULAR ANEURYSM ARISING FROM THE ANTERIOR WALL OF THE ASCENDING AORTA MEASURING 2.5 X 2 X 1.5 CM. NO EVIDENCE FOR RUPTURE OR DISSECTION. 3. PATCHY GROUND GLASS INFILTRATES WITHIN BOTH LUNGS. 4. SCATTERED HEPATIC CYSTS. JOB NUMBER: [id number] MTDD
== END 2019-02-27 13:15 | disposition home health service (06) ==
LOC: ER 13:52 → MEDSURG 19:56
PROVIDERS: ADMIT Internal Medicine; ATTEND Internal Medicine
DX: R07.89 Other chest pain (principal); I10 Essential (primary) hypertension; I71.9 Aortic aneurysm of unspecified site, without rupture; Z87.74 Personal history of (corrected) congenital malformations of heart and circulatory system; Z85.41 Personal history of malignant neoplasm of cervix uteri
CPT/HCPCS: 71275; 80053; 80061; 82550; 82553; 84484; 85025; 85379; 93005; 93010; 99220; 99285